=== PATIENT | male | born 1980 | race Caucasian/White ===

== ENCOUNTER 2023-10-18 13:30 | Emergency (ER) | payer OTHER ==
[~2023-10-18] VITALS: Ht 167.6 cm; Wt 109.0 kg
[2023-10-18 13:36] VITALS: BP 164/104; PULSE 108; RESP 22; TEMP 98.8; O2SAT 98
[2023-10-18] MEDS ORDERED: HYDR-4009 MT (15:21)
[2023-10-18] MEDS ORDERED: HYDR-4001 MT (19:22)
== END 2023-10-18 18:38 | disposition home or self-care (01) ==
LOC: ER 13:30
DX: S20.219A Contusion of unspecified front wall of thorax, initial encounter (principal); V49.49XA Driver injured in collision with other motor vehicles in traffic accident, initial encounter; Y93.89 Activity, other specified; Y92.89 Other specified places as the place of occurrence of the external cause; Y99.8 Other external cause status
CPT/HCPCS: 71045; 73560; 93005; 99284